=== PATIENT | male | born 1945 | race Caucasian/White ===

== ENCOUNTER 2016-09-24 06:10 | Inpatient (IN) | payer OTHER ==
[2016-09-23 09:32] VITALS: BMI 31.3
[~2016-09-24 06:10] MED LIST: CEFAZOLIN 2 GM in DEXTROSE 5%-WATER - 50 ML IVPB ONE; CELECOXIB 200 MG CAPSULE PO ONE; ROPIVICAINE 0.2%/MORPH PF/KETOROLAC - 51ML DISP.SYRINGE IA ONE; TRANEXAMIC ACID 1000 MG/10 ML VIAL IVPUSH ONE
[2016-09-24] MEDS ORDERED: SODIUM CHLORIDE 0.9% P/F 10 ML VIAL IJ ONE (06:36)
[2016-09-24] MEDS ORDERED: MIDAZOLAM HCL 2 MG/2 ML SINGLE DOSE VIAL ONE (06:36)
[2016-09-24] MEDS ORDERED: ROPIVACAINE HCL 0.5% 30ML VIAL ONE (06:36)
[2016-09-24] MEDS ORDERED: DEXAMETHASONE SOD PHOSPHATE/PF 10 MG/ML SDV ONE (06:36)
[2016-09-24] MEDS ORDERED: ePHEDrine SULFATE 50 MG/1 ML AMPULE ONE (07:08)
[2016-09-24] MEDS ORDERED: PROPOFOL 20 ML ONE ×3 (07:08)
[2016-09-24] MEDS ORDERED: SUCCINYLCHOLINE CHLORIDE 200 MG/10 ML VIAL ONE (07:09)
[2016-09-24] MEDS ORDERED: ceFAZolin SODIUM 1 GM VIAL ONE ×2 (07:11→07:16)
[2016-09-24] MEDS ORDERED: TRANEXAMIC ACID 1000 MG/10 ML VIAL ONE ×2 (07:11→07:16)
[2016-09-24] MEDS ORDERED: BUPIVACAINE HCL/PF 0.5% (5MG/ML) 10 ML VIAL ONE (07:12)
[2016-09-24] MEDS ORDERED: ROPIVICAINE 0.2%/MORPH PF/KETOROLAC - 51ML DISP.SYRINGE IA ONE (07:16)
[2016-09-24] MEDS ORDERED: VANCOMYCIN 1,000 MG VIAL (RESTRICTED TO ID ONLY) ONE (07:16)
[2016-09-24] MEDS ORDERED: GABAPENTIN 300 MG CAPSULE (FP) ONE (07:18)
[2016-09-24] MEDS ORDERED: CELECOXIB 200 MG CAPSULE ONE (07:19)
[2016-09-24] MEDS: GABAPENTIN 300 MG CAPSULE (FP) PO ONE (07:25)
--- NOTE | 2016-09-24 07:39 | HP ---
Admitting History and Physical - Admission Chief Complaint: Left knee OA x years History of Present Illness: 70 year old male presents in regard to his left knee. Longstanding history of left knee osteoarthritis. Patient complains of pain, limited ROM and difficulty ambulating. Patient's symptoms affect his ADLs. Patient has failed conservative treatment including PO medication, injections, activity modification and exercise program. Patient would like to proceed with a left total knee arthroplasty. History Source: Patient - Past Medical History Cardiovascular: Yes: HTN Gastrointestinal: Yes: GERD Rheumatology: Yes: Gout - Past Surgical History Additional Past Surgical History: See written H&P in chart - Smoking History Smoking history: Former smoker Have you smoked in the past 12 months: No If you are a former smoker, when did you quit?: 1976 - Alcohol/Substance Use Hx Alcohol Use: No (QUIT 2014) Home Medications - Allergies Allergies/Adverse Reactions: Allergies Allergy/AdvReac Type Severity Reaction Status Date / Time lactose Allergy Intermediate ABD PAIN Verified 09/22/16 13:03 No Known Drug Allergies Allergy Verified 09/22/16 13:03 - Home Medications Home Medications: Ambulatory Orders Allopurinol 300 mg PO DAILY 09/22/16 Atenolol [Tenormin] 50 mg PO DAILY 09/22/16 Omeprazole 40 mg PO DAILY 09/22/16 Pantoprazole Sodium [Protonix] 40 mg PO DAILY 09/22/16 Colchicine/Probenecid [Probenecid-Colchicine Tabs] 1 tab PO DAILY 09/23/16 Review of Systems - Review of Systems Musculoskeletal: reports: Crepitus (Left Knee), Decreased ROM (Left Knee), Joint Pain (Left Knee), Joint Swelling (Left Knee) Physical Examination Vital Signs: Vital Signs Temperature 98 F 09/24/16 07:06 Pulse Rate 56 L 09/24/16 07:06 Respiratory Rate 18 09/24/16 07:06 Blood Pressure 143/91 09/24/16 07:06 O2 Sat by Pulse Oximetry (%) Constitutional: Yes: Well Nourished, No Distress Eyes: Yes: Conjunctiva Clear HENT: Yes: Atraumatic, Normocephalic Neck: Yes: Supple Cardiovascular: Yes: Regular Rate and Rhythm Respiratory: Yes: Regular Gastrointestinal: Yes: Soft ...Rectal Exam: Yes: Deferred Musculoskeletal: Yes: Joint Stiffness (Left Knee), Joint Swelling (Left Knee) Assessment/Plan 70 year old male with a longstanding history of left knee osteoarthritis. Patient's symptoms affect his ADLs. Patient has failed conservative treatment. Proceed with a left total knee arthroplasty.
--- NOTE | 2016-09-24 11:39 | OP ---
Operative Note - Note: Operative Date: 09/24/16 Pre-Operative Diagnosis: Left knee OA Operation: Left TKA Post-Operative Diagnosis: Same as Pre-op Surgeon: Pollo Triplett Needleworker: Shayy Goodrich Anesthesia: Spinal Estimated Blood Loss (mls): 100 Operative Report Dictated: Yes
[2016-09-24] MEDS ORDERED: MAGNESIUM HYDROX 2400MG/30ML ORAL SUSPENSION 30 ML CUP PO PRN (11:45)
[2016-09-24] MEDS ORDERED: ONDANSETRON 4 MG/2 ML VIAL IVPB PRN (11:45)
[2016-09-24] MEDS ORDERED: MAG HYDROX/AL HYDROX/SIMETH 30 ML UNIT-DOSE CUP PO PRN (11:45)
[2016-09-24] MEDS ORDERED: LACTATED RINGERS SOLUTION 1,000 ML IV SCH (11:45)
[2016-09-24] MEDS: traMADol HCL 50 MG TABLET PO SCH (12:08)
[2016-09-24] MEDS ORDERED: oxyCODONE HCL 5 MG TABLET PO PRN ×2 (12:11)
[2016-09-24] MEDS ORDERED: ROPIVACAINE 0.2% 400ML 400 ML ML NR ONE (12:11)
--- NOTE | 2016-09-24 12:11 | SPEC ---
DATE OF OPERATION: 09/24/2016 PREOPERATIVE DIAGNOSIS: Left knee osteoarthritis. POSTOPERATIVE DIAGNOSIS: Left knee osteoarthritis. PROCEDURE: Left total knee replacement. ATTENDING DOCTOR: Ana Paula Moncada MD TRANSFER AND LINE UP WORKER: JUAN PABLO Cabello ANESTHESIA: Spinal plus sedation. ESTIMATED BLOOD LOSS: 100 mL. COMPLICATIONS: None. SPECIMENS: Resected bone was sent for pathology analysis. DISPOSITION: The patient was transferred to the PACU in stable condition. IMPLANTS USED: [place] Triathlon, size 5 femoral component, size 6 tibial component, 29-mm patellar component, and 9-mm posterior stabilized polyethylene component. INDICATIONS: This is a 70-year-old male who presented to the office complaining of severe left knee pain. He was seen and examined by Dr. Moncada and diagnosed with severe left knee osteoarthritis. The patient was initially treated nonoperatively with conservative treatments such as medications, injections, and physical therapy, but continued to have severe pain and ambulatory dysfunction. He was therefore indicated for a left total knee replacement. The risks, benefits, and alternatives to the surgery were explained to the patient and his family in great detail using a certified retinal angiographer, and he elected to proceed with the surgery. DESCRIPTION OF PROCEDURE: On the day of surgery, the patient was taken to the OR and placed on the OR table. Spinal anesthesia was administered by the anesthesiologist. The patient was then positioned supine on the table and all bony prominences were padded. A nonsterile tourniquet was placed on the proximal thigh. The knee was then prepped and draped in the usual sterile fashion and intravenous antibiotics were given for infection prophylaxis. A surgical time-out was then performed with the team, and the patients identity, procedure, side, availability of implants, and the administration of antibiotics was confirmed. The leg was then elevated and exsanguinated, and the tourniquet was inflated. With the knee flexed, a midline incision was made and carried down through the subcutaneous fat to the underlying retinaculum. A medial parapatellar arthrotomy was performed. This was followed by a subperiosteal dissection of the tissue off the proximal, medial tibia. A portion of fat pad was removed from under the patellar tendon, and a small portion of fat was excised off the distal supracondylar femur. The knee was then flexed further and the anterior horn of the lateral meniscus was released from the midline. Next, the anterior and posterior cruciate ligaments were transected. Osteophytes were removed from both the femur and tibia. Grade 4 changes were noted diffusely throughout the knee. Hohmann retractors were then placed around the distal femur. The starting drill was used to enter the intramedullary canal. The starting point had been chosen by checking the radiographs and anatomy. Proper alignment and intramedullary placement was then confirmed by placing the long narrow eladio into the femur. Next, the distal femoral cutting guide was adjusted to 6 degrees of valgus and pinned to the femur. The bone resection was assessed using an victorino-wing. An approximately 10mm distal cut was made and the cut pieces measured. Once this was complete, the sizing guide was used to determine which size femoral component should be used. Next, the appropriately sized 4-in-1 cutting block was then placed at the correct amount of external rotation and the victorino wing was used to assure that there would be no notching of the anterior cortex of the femur. Once this was done, Hohmann retractors were used to protect the medial and lateral collateral ligaments, and all appropriate bone cuts were made. Attention was then turned to the tibia. Hohmann retractors were used to translate the tibia anteriorly and protect the collateral ligaments. The medial and lateral menisci were removed. The extramedullary tibial alignment guide was then placed and adjusted for rotation, varus/valgus, and slope. The height of the cutting block was adjusted to the level of the desired bone resection and then pinned in place. The proximal tibia was then cut with a saw and the bone was removed and measured. Once this was completed, trial components were placed and the knee was taken through a full range of motion. Soft tissue balance was assessed in both flexion and extension and found to be appropriate. The knee was stable throughout the full range of motion. The knee was then put into extension and the patella everted. The synovium around the patella was circumscribed with electrocautery. A caliper was used to measure the patellar thickness and a saw was then used to resect the patella at the chondro-osseous junction. The cut surface was then sized and drilled for the appropriate patellar button, with care taken to medialize it. A trial patella was then placed and the knee was again taken through a full range of motion. The knee was found to have both good balance and good patellar tracking. All of the components were removed except the tibial base plate. The appropriate instrumentation was used to drill and punch the proximal tibia for the keel of the final component. All bony surfaces were then cleaned with pulsatile lavage and dried. Bone cement was then prepared on the back table, and final components were cemented in place in the usual fashion. Extruded cement was removed. The polyethylene trial was placed, the knee was put into extension, and axial pressure was applied for compression while the cement hardened. The patellar button was similarly cemented into place. Once the cement had hardened, the knee was taken through a full range of motion to assess stability, balance, and patellar tracking. This was found to be optimal and the trial polyethylene was exchanged for the appropriately sized real implant. The wound was then thoroughly irrigated with normal saline. No. 1 Polysorb and 0 VLoc 180 barbed sutures were used to close the arthrotomy. No. 1 Polysorb and 2-0 Polysorb sutures were used in the subcutaneous tissues. The skin was closed using both 3-0 VLoc 90 suture in a running subcuticular fashion and SwiftSet skin adhesive. Once this was completed a sterile Aquacel dressing and compressive Roldan-wrap was applied. The tourniquet was then deflated and the patient was awakened and taken to the PACU in stable condition. ADDENDUM: After final components were placed, a 3-minute dilute Betadine lavage was performed using the YOUNG protocol. This was followed copious irrigation with saline pulsatile lavage. Wound closure was then begun. ANA PAULA MONCADA M.D. [id number]
[2016-09-24] MEDS: ACETAMINOPHEN 325 MG TABLET (FP) PO SCH (12:20)
[2016-09-24] MEDS: oxyCODONE HCL 10 MG SUSTAINED ACTING TABLET PO SCH (21:40)
[2016-09-24] MEDS: ASCORBIC ACID 500 MG TABLET (FP) PO SCH (21:40)
[2016-09-24] MEDS: GABAPENTIN 300 MG CAPSULE (FP) PO SCH (21:40)
[2016-09-24] MEDS: SENNOSIDES/DOCUSATE COMBO (SENNA PLUS) TABLET (UD) PO SCH (21:41)
[2016-09-25] MEDS: traMADol HCL 50 MG TABLET PO SCH ×7 (00:13→23:57)
[2016-09-25] MEDS: ACETAMINOPHEN 325 MG TABLET (FP) PO SCH ×6 (00:14→23:57)
[2016-09-25] MEDS: CEFAZOLIN 2 GM/D5W 50 ML IVPB SCH ×2 (02:17→20:16)
[2016-09-25 08:14] LABS: MCH 28.6 pg (25.7-33.7); MCHC 32.8 g/dl (32.0-35.9); MEAN PLT VOLUME 8.5 fl (7.5-11.1); PLATELET COUNT 197 K/MM3 (134-434); RDW 15.7 % (11.9-15.9); WHITE BLOOD COUNT 8.6 K/mm3 (4.0-10.8)
[2016-09-25 08:16] LABS: ANION GAP 7 (8-16); CALCIUM 8.4 mg/dl (8.4-10.2); CO2 26 mmol/L (22-28); GLUCOSE,RANDOM 99 mg/dl (74-106)
[2016-09-25] MEDS: ASCORBIC ACID 500 MG TABLET (FP) PO SCH ×2 (09:09→21:34)
[2016-09-25] MEDS: ALLOPURINOL 300 MG TABLET (FP) PO SCH (09:09)
[2016-09-25] MEDS: SENNOSIDES/DOCUSATE COMBO (SENNA PLUS) TABLET (UD) PO SCH ×2 (09:09→21:35)
[2016-09-25] MEDS: GABAPENTIN 300 MG CAPSULE (FP) PO SCH ×2 (09:09→21:35)
[2016-09-25] MEDS: MULTIVITAMINS (DAILY MVI) TABLET (FP) PO SCH (09:10)
[2016-09-25] MEDS: oxyCODONE HCL 10 MG SUSTAINED ACTING TABLET PO SCH ×2 (09:10→21:35)
[2016-09-25] MEDS: PANTOPRAZOLE 40 MG TABLET (FP) PO SCH (09:10)
[2016-09-25] MEDS: ASPIRIN 325 MG TABLET PO SCH (09:11)
[2016-09-25] MEDS: ATENOLOL 50 MG TABLET (FP) PO SCH (09:12)
--- NOTE | 2016-09-25 09:23 | PN ---
Progress Note (short form) - Note Progress Note: Pt seen and examined. Comfortable. No complaints. AVSS Selected Entries 09/25/16 06:00 Temperature 97.6 F Pulse Rate 55 L Respiratory 18 Rate Blood Pressure 129/75 O2 Sat by Pulse 97 Oximetry (%) Oxygen Delivery Room Air Method Laboratory Tests 09/25/16 09/25/16 07:30 07:30 WBC 8.6 Hgb 10.8 L Hct 33.0 L Plt Count 197 Sodium 136 Potassium 4.8 Chloride 103 Carbon Dioxide 26 Anion Gap 7 L BUN 26 H Creatinine 2.0 H Random Glucose 99 Calcium 8.4 Gen: NAD LLE: c/d/i, NVID A/P 70yo male POD#1 s/p L TKA 1. PT/OOB - WBAT LLE 2. Hx of chronic renal insufficiency - encourage PO fluid intake. NS @ 125cc/ hr until tomorrow. 3. Plan for d/c home tomorrow
[2016-09-25] MEDS: SODIUM CHLORIDE 1,000 ML IV SCH (10:00)
[2016-09-25] MEDS ORDERED: COLCHICINE PO SCH (10:00)
[2016-09-25] MEDS ORDERED: PANTOPRAZOLE 40 MG TABLET (FP) PO SCH (10:00)
[2016-09-25] MEDS ORDERED: PROBENECID PO SCH (10:00)
[2016-09-25] MEDS ORDERED: PT OWN MED DRAWER 7, Y5N ONE (16:36)
[2016-09-25] MEDS: GABAPENTIN 300 MG CAPSULE (FP) PO ONE (20:17)
[2016-09-26] MEDS: traMADol HCL 50 MG TABLET PO SCH ×2 (05:34→11:45)
[2016-09-26] MEDS: ACETAMINOPHEN 325 MG TABLET (FP) PO SCH ×2 (05:34→11:46)
[2016-09-26 06:54] VITALS: BP 156/95; PULSE 70; TEMP 98.5
[2016-09-26 07:55] LABS: MCH 28.4 pg (25.7-33.7); MCHC 32.8 g/dl (32.0-35.9); MEAN CELL VOLUME 86.6 fl (80-96); MEAN PLT VOLUME 8.4 fl (7.5-11.1); PLATELET COUNT 197 K/MM3 (134-434); RDW 15.7 % (11.9-15.9); WHITE BLOOD COUNT 7.4 K/mm3 (4.0-10.8)
[2016-09-26 07:58] LABS: CALCIUM 8.4 mg/dl (8.4-10.2); COCKROFT - GAULT 57.95; CREATININE 1.5 mg/dl (0.6-1.3)
[2016-09-26] MEDS: ASPIRIN 325 MG TABLET PO SCH (08:46)
[2016-09-26] MEDS ORDERED: PT OWN MED DRAWER 7, Y5N ONE (10:04)
[2016-09-26] MEDS: oxyCODONE HCL 10 MG SUSTAINED ACTING TABLET PO SCH (10:12)
[2016-09-26] MEDS: GABAPENTIN 300 MG CAPSULE (FP) PO SCH (10:13)
[2016-09-26] MEDS: PANTOPRAZOLE 40 MG TABLET (FP) PO SCH (10:14)
[2016-09-26] MEDS: SENNOSIDES/DOCUSATE COMBO (SENNA PLUS) TABLET (UD) PO SCH (10:14)
[2016-09-26] MEDS: MULTIVITAMINS (DAILY MVI) TABLET (FP) PO SCH (10:14)
[2016-09-26] MEDS: SODIUM CHLORIDE 1,000 ML IV SCH (10:14)
[2016-09-26] MEDS: ALLOPURINOL 300 MG TABLET (FP) PO SCH (10:15)
[2016-09-26] MEDS: ATENOLOL 50 MG TABLET (FP) PO SCH (10:15)
[2016-09-26] MEDS: ASCORBIC ACID 500 MG TABLET (FP) PO SCH (10:15)
--- NOTE | 2016-09-26 12:29 | PN ---
Progress Note (short form) - Note Progress Note: Pt seen and examined. Comfortable. No complaints. AVSS Selected Entries 09/26/16 06:00 Temperature 98.5 F Pulse Rate 70 Respiratory 19 Rate Blood Pressure 156/95 O2 Sat by Pulse 95 Oximetry (%) Oxygen Delivery Room Air Method Laboratory Tests 09/26/16 09/26/16 07:25 07:25 WBC 7.4 Hgb 10.7 L Hct 32.6 L Plt Count 197 Sodium 136 Potassium 4.6 Chloride 103 Carbon Dioxide 26 Anion Gap 7 L BUN 18 D Creatinine 1.5 H D Random Glucose 121 H D Calcium 8.4 Gen: NAD LLE: c/d/i, NVID A/P 70yo male POD#2 s/p L TKA 1. PT/OOB - WBAT LLE 2. Hx of chronic renal insufficiency - Creatinine back to baseline @ 1.5 3. D/C home today
--- NOTE | 2016-09-26 12:40 | DS ---
Physical Examination Vital Signs: Vital Signs Temperature 98.5 F 09/26/16 06:00 Pulse Rate 70 09/26/16 06:00 Respiratory Rate 19 09/26/16 09:00 Blood Pressure 156/95 09/26/16 06:00 O2 Sat by Pulse Oximetry (%) 95 09/26/16 09:00 Labs: CBC, BMP 09/26/16 07:25 09/26/16 07:25 Discharge Summary Reason For Visit: LEFT KNEE OSTEOARTHRITIS Current Active Problems Osteoarthritis of left knee (Acute) Procedures: Principal: left knee replacement Hospital Course: Admitted for elective surgery. Procedure performed without complications. Pt received postoperative antibiotic prophylaxis and DVT ppx. Ambulated with physical therapy. Stable for discharge home with outpatient followup. Condition: Stable - Instructions Diet, Activity, Other Instructions: Dr. Triplett - Knee Replacement Instructions Keep the Aquacel dressing on until removed by Dr. Triplett in 10-14 days - it is antibacterial and waterproof and you can shower with it on. Call the office for a follow-up appointment with Dr. Triplett in 10-14 days. Take one Aspirin 325mg daily for 6 weeks to prevent blood clots in your legs. Take one Pantoprazole 40mg daily for 6 weeks to protect against heartburn and ulcers. Take a multivitamin and vitamin C supplement daily Take an over the counter stool softener daily to prevent constipation For pain: *Mild pain (1-3/10): Take 1 Tramadol tablet every 4 hours as needed. Moderate pain (4-6/10): Take 1 Tramadol tablet and 1 Percocet tablet every 4 hours as needed. Severe pain (7-10/10): Take 1 Tramadol tablet and 2 Percocet tablets every 4 hours as needed. Activity: You can put as much weight on the operative leg as you want. Right after you get home, there will be a physical therapist coming to your house to help you walk around and bend/straighten your knee. After your follow-up appointment, you will be sent for more intensive outpatient physical therapy which will include machines and equipment that the home therapist cannot bring to your house. Always use a walker or cane for balance and to prevent falls. Disposition: VNS/HOME HEALTH CARE - Home Medications Comprehensive Discharge Medication List: Ambulatory Orders Allopurinol 300 mg PO DAILY 09/22/16 Atenolol [Tenormin] 50 mg PO DAILY 09/22/16 Omeprazole 40 mg PO DAILY 09/22/16 Colchicine/Probenecid [Col-Benemid] 1 tab PO DAILY 09/23/16 Ascorbic Acid [Vitamin C -] 500 mg PO BID tablet 09/26/16 Aspirin [ASA -] 325 mg PO DAILY@0800 tablet 09/26/16 Multivitamins [Multivit ([facility] Formul[facility])] 1 tab PO DAILY tab 09/26/16 Oxycodone HCl/Acetaminophen [Percocet 5-325 mg Tablet] 1 - 2 tab PO Q4H PRN #60 tablet MDD 10 09/26/16 Pantoprazole Sodium [Protonix] 40 mg PO DAILY #40 tab 09/26/16 Sennosides/Docusate Sodium [Pericolace -] 2 tablet PO BID tablet 09/26/16 Tramadol HCl [Ultram -] 50 mg PO Q4H PRN #90 tablet MDD 6 09/26/16
--- NOTE | 2016-09-28 15:32 | PATH ---
Surgical Pathology Report Patient Name: SURYA ROSE Med. Rec. #: [id number] /Age/Gender: 1945 (Age: 70) / M Account: [id number] Location: [facility] MED-SURG Taken: 09/24/2016 Received: 09/24/2016 Reported: 09/28/2016 Physicians: Pollo Triplett M.D. Specimen(s) Received BONE LEFT KNEE Clinical History Left knee osteoarthritis Final Diagnosis BONE, LEFT KNEE, TOTAL KNEE REPLACEMENT: DEGENERATIVE JOINT DISEASE. Electronically Signed Adrienne Serra M.D. Gross Description Received in formalin labeled "bone left knee," is a 13.0 x 10.0 x 2.0 cm aggregate of multiple resendiz-yellow, irregular portions of bone and soft tissue. The tibial plateau measures 8.8 x 6.0 x 1.8 cm. There are multiple areas of eburnation present, measuring up to 3 cm in greatest dimension. The remaining articular surfaces are resendiz-yellow and focally granular. The underlying trabecular bone is yellow and hard. Metal Caster sections are submitted in one cassette, following decalcification. 09/25/201609/25/2016
== END 2016-09-26 14:00 | disposition home health service (06) | DRG 470 ==
LOC: FM/S 06:10
PROVIDERS: ADMIT Student in an Organized Health Care Education/Training Program; ATTEND Student in an Organized Health Care Education/Training Program
PROC: 0SRD0J9 Replacement of Left Knee Joint with Synthetic Substitute, Cemented, Open Approach (ICD-10-PCS; principal; 2016-09-24 08:59)
DX: M17.12 Unilateral primary osteoarthritis, left knee (principal); K21.9 Gastro-esophageal reflux disease without esophagitis; I12.9 Hypertensive chronic kidney disease with stage 1 through stage 4 chronic kidney disease, or unspecified chronic kidney disease; N18.9 Chronic kidney disease, unspecified; M10.9 Gout, unspecified
CPT/HCPCS: 36415; 73560-TC-LT; 80048; 85027; 88304-TC; 88311-TC; 94010; 94760; 97116-GP; 97162

== ENCOUNTER 2017-09-02 09:36 | Inpatient (IN) | payer OTHER ==
[2017-08-25 10:53] VITALS: BMI 31.7
--- NOTE | 2017-09-02 08:00 | HP ---
Admitting History and Physical - Admission Chief Complaint: right knee osteoarthritis x years History of Present Illness: 71 year old male presents regarding his right knee. Longstanding history of right knee osteoarthritis. Patient complains of pain, limited ROM, difficulty ambulating and difficulty with activities of daily living. Patient has failed conservative treatment measures including PO medication, activity modification, exercise program and injections. As patient has failed conservative treatment measures, he wishes to proceed with surgical intervention - right total knee arthroplasty. History Source: Patient - Past Medical History Cardiovascular: Yes: HTN Gastrointestinal: Yes: GERD Rheumatology: Yes: Gout - Past Surgical History Additional Past Surgical History: See written history & physical. - Smoking History Smoking history: Former smoker Have you smoked in the past 12 months: No If you are a former smoker, when did you quit?: 1976 - Alcohol/Substance Use Hx Alcohol Use: Yes (SOCIALLY) Home Medications - Allergies Allergies/Adverse Reactions: Allergies Allergy/AdvReac Type Severity Reaction Status Date / Time lactose Allergy Intermediate ABD PAIN Verified 08/25/17 10:36 No Known Drug Allergies Allergy Verified 08/25/17 10:36 - Home Medications Home Medications: Ambulatory Orders Allopurinol 300 mg PO DAILY 09/22/16 Atenolol [Tenormin] 50 mg PO DAILY 09/22/16 Omeprazole 40 mg PO DAILY 09/22/16 Colchicine/Probenecid [Col-Benemid] 1 tab PO DAILY 09/23/16 Multivitamins [Multivit ([facility] Formul[facility])] 1 tab PO DAILY tab 09/26/16 Pantoprazole Sodium [Protonix] 40 mg PO DAILY #40 tab 09/26/16 Review of Systems - Review of Systems Musculoskeletal: reports: Decreased ROM (right knee), Joint Pain (right knee), Joint Swelling (right knee) Physical Examination Constitutional: Yes: Well Nourished, No Distress Eyes: Yes: Conjunctiva Clear HENT: Yes: Atraumatic, Normocephalic Neck: Yes: Supple Cardiovascular: Yes: Regular Rate and Rhythm Respiratory: Yes: Regular Gastrointestinal: Yes: Soft ...Rectal Exam: Yes: Deferred Musculoskeletal: Yes: Joint Stiffness (right knee), Joint Swelling (right knee) Assessment/Plan 71 year old male presents regarding his right knee. Longstanding history of right knee osteoarthritis. Patient complains of pain, limited ROM, difficulty ambulating and difficulty with activities of daily living. Patient has failed conservative treatment measures including PO medications, activity modification , injections and exercise program. As patient has failed conservative treatment options, he wishes to proceed with surgical intervention. Pros, cons, risks, benefits and alternatives of a right total knee arthroplasty was discussed with the patient at length. Patient confirms his understanding. Patient consents to proceed with a right total knee arthroplasty.
[~2017-09-02 09:36] MED LIST changes: +GABAPENTIN 300 MG CAPSULE (FP) PO ONE; +PANTOPRAZOLE 40 MG TABLET (FP) PO ONE; +oxyCODONE HCL 10 MG SUSTAINED ACTING TABLET PO ONE
[2017-09-02] MEDS ORDERED: DEXAMETHASONE SOD PHOSPHATE/PF 10 MG/ML SDV ONE (12:53)
[2017-09-02] MEDS ORDERED: BUPIVACAINE LIPOSOME/PF (EXPAREL) 266 MG/20 ML VIAL ONE (12:53)
[2017-09-02] MEDS ORDERED: MIDAZOLAM HCL 2 MG/2 ML SINGLE DOSE VIAL ONE ×2 (12:53→15:53)
[2017-09-02] MEDS ORDERED: ceFAZolin SODIUM 1 GM VIAL ONE ×2 (13:47→13:58)
[2017-09-02] MEDS ORDERED: TRANEXAMIC ACID 1000 MG/10 ML VIAL ONE ×2 (13:52→13:59)
[2017-09-02] MEDS ORDERED: ROPIVICAINE 0.2%/MORPH PF/KETOROLAC - 51ML DISP.SYRINGE IA ONE (14:00)
[2017-09-02] MEDS ORDERED: VANCOMYCIN 1,000 MG VIAL (RESTRICTED TO ID ONLY) ONE (14:54)
[2017-09-02] MEDS ORDERED: ONDANSETRON 4 MG/2 ML VIAL IVPUSH PRN ×2 (17:35→17:49)
[2017-09-02] MEDS ORDERED: ACETAMINOPHEN 1000 MG/100 ML VIAL (NON FORMULARY) IVPB ONE ×2 (17:40→18:00)
[2017-09-02] MEDS ORDERED: MAG HYDROX/AL HYDROX/SIMETH 30 ML UNIT-DOSE CUP PO PRN (17:49)
--- NOTE | 2017-09-02 17:52 | OP ---
Operative Note - Note: Operative Date: 09/02/17 Pre-Operative Diagnosis: Right knee OA Operation: RIGHT TKA Post-Operative Diagnosis: Same as Pre-op Surgeon: Pollo Triplett Investigator Welfare: Shayy Goodrich Anesthesia: Spinal Estimated Blood Loss (mls): 100
[2017-09-02] MEDS ORDERED: ACETAMINOPHEN INJECTION 100 ML IVPB ONE (17:58)
[2017-09-02] MEDS ORDERED: LACTATED RINGERS SOLUTION 1,000 ML IV SCH (18:00)
[2017-09-02] MEDS ORDERED: traMADol HCL 50 MG TABLET PO ONE (18:03)
[2017-09-02] MEDS ORDERED: traMADol HCL 50 MG TABLET ONE (18:03)
--- NOTE | 2017-09-02 19:10 | SPEC ---
DATE OF OPERATION: 09/02/2017 PREOPERATIVE DIAGNOSIS: Right knee osteoarthritis. POSTOPERATIVE DIAGNOSIS: Right knee osteoarthritis. PROCEDURE: Right total knee replacement. ATTENDING: Ana Paula Moncada M.D. HOME ECONOMIST CONSUMER SERVICE: Josi Cabello ANESTHESIA: Spinal plus sedation. ESTIMATED BLOOD LOSS: 100 mL. COMPLICATIONS: None. SPECIMENS: Resected bone was sent for pathological analysis. DISPOSITION: The patient was transferred to the PACU in stable condition. IMPLANTS USED: Martell Triathlon size 6 femoral and tibial components, 29-mm patellar component, 9-mm posterior stabilized polyethylene component. INDICATION: This is a 71-year-old male who has a history of bilateral knee severe osteoarthritis. He underwent a left total knee replacement here last year, and that did very well. He continues to have severe right knee pain despite conservative treatment and was therefore indicated for a right total knee replacement. The risks, benefits, and alternatives to the procedure were explained to the patient in great detail, and he elected to proceed with the surgery. DESCRIPTION OF PROCEDURE: On the day of surgery, the patient was taken to the operating room and placed on the OR table. Spinal anesthesia was administered by the anesthesiologist. The patient was then positioned supine on the table and all bony prominences were padded. A nonsterile tourniquet was placed on the proximal thigh. The knee was then prepped and draped in the usual sterile fashion and intravenous antibiotics were given for infection prophylaxis. A surgical time-out was then performed with the team, and the patients identity, procedure, side, availability of implants, and the administration of antibiotics was confirmed. The leg was then elevated and exsanguinated, and the tourniquet was inflated. With the knee flexed, a midline incision was made and carried down through the subcutaneous fat to the underlying retinaculum. A medial parapatellar arthrotomy was performed. This was followed by a subperiosteal dissection of the tissue off the proximal, medial tibia. A portion of fat pad was removed from under the patellar tendon, and a small portion of fat was excised off the distal supracondylar femur. The knee was then flexed further and the anterior horn of the lateral meniscus was released from the midline. Next, the anterior and posterior cruciate ligaments were transected. Osteophytes were removed from both the femur and tibia. Grade 4 changes were noted diffusely throughout the knee. Hohmann retractors were then placed around the distal femur. The starting drill was used to enter the intramedullary canal. The starting point had been chosen by checking the radiographs and anatomy. Proper alignment and intramedullary placement was then confirmed by placing the long narrow eladio into the femur. Next, the distal femoral cutting guide was adjusted to 6 degrees of valgus and pinned to the femur. The bone resection was assessed using an victorino-wing. An approximately 10mm distal cut was made and the cut pieces measured. Once this was complete, the sizing guide was used to determine which size femoral component should be used. Next, the appropriately sized 4-in-1 cutting block was then placed at the correct amount of external rotation and the victorino wing was used to assure that there would be no notching of the anterior cortex of the femur. Once this was done, Hohmann retractors were used to protect the medial and lateral collateral ligaments, and all appropriate bone cuts were made. Attention was then turned to the tibia. Hohmann retractors were used to translate the tibia anteriorly and protect the collateral ligaments. The medial and lateral menisci were removed. The extramedullary tibial alignment guide was then placed and adjusted for rotation, varus/valgus, and slope. The height of the cutting block was adjusted to the level of the desired bone resection and then pinned in place. The proximal tibia was then cut with a saw and the bone was removed and measured. Once this was completed, trial components were placed and the knee was taken through a full range of motion. Soft tissue balance was assessed in both flexion and extension and found to be appropriate. The knee was stable throughout the full range of motion. The knee was then put into extension and the patella everted. The synovium around the patella was circumscribed with electrocautery. A caliper was used to measure the patellar thickness and a saw was then used to resect the patella at the chondro-osseous junction. The cut surface was then sized and drilled for the appropriate patellar button, with care taken to medialize it. A trial patella was then placed and the knee was again taken through a full range of motion. The knee was found to have both good balance and good patellar tracking. All of the components were removed except the tibial base plate. The appropriate instrumentation was used to drill and punch the proximal tibia for the keel of the final component. All bony surfaces were then cleaned with pulsatile lavage and dried. Bone cement was then prepared on the back table, and final components were cemented in place in the usual fashion. Extruded cement was removed. The polyethylene trial was placed, the knee was put into extension, and axial pressure was applied for compression while the cement hardened. The patellar button was similarly cemented into place. Once the cement had hardened, the knee was taken through a full range of motion to assess stability, balance, and patellar tracking. This was found to be optimal and the trial polyethylene was exchanged for the appropriately sized real implant. The wound was then thoroughly irrigated with normal saline. No. 1 Polysorb and 0 VLoc 180 barbed sutures were used to close the arthrotomy. No. 1 Polysorb and 2-0 Polysorb sutures were used in the subcutaneous tissues. The skin was closed using both 3-0 VLoc 90 suture in a running subcuticular fashion and SwiftSet skin adhesive. Once this was completed a sterile Aquacel dressing and compressive Roldan-wrap was applied. The tourniquet was then deflated and the patient was awakened and taken to the PACU in stable condition. ADDENDUM: After final implants were placed, a 3-minute dilute Betadine lavage was performed according to the GENOA protocol. After this was completed, the wound was again irrigated with normal saline, the pulsatile lavage, and then wound closure was begun. ANA PAULA MONCADA M.D. [id number]
[2017-09-02] MEDS: traMADol HCL 50 MG TABLET PO SCH (20:18)
[2017-09-02] MEDS: oxyCODONE HCL 5 MG TABLET PO PRN (20:19)
[2017-09-02] MEDS: GABAPENTIN 300 MG CAPSULE (FP) PO SCH (21:58)
[2017-09-02] MEDS: ASCORBIC ACID 500 MG TABLET (FP) PO SCH (21:58)
[2017-09-02] MEDS: CEFAZOLIN 2 GM in DEXTROSE 5%-WATER - 50 ML IVPB SCH (21:58)
[2017-09-02] MEDS: ATORVASTATIN CA 40 MG TABLET (FP) PO SCH (21:58)
[2017-09-02] MEDS: SENNOSIDES/DOCUSATE COMBO (SENNA PLUS) TABLET (UD) PO SCH (21:58)
[2017-09-03] MEDS: oxyCODONE HCL 5 MG TABLET PO PRN (00:20)
[2017-09-03] MEDS: traMADol HCL 50 MG TABLET PO SCH ×5 (00:21→23:57)
[2017-09-03] MEDS ORDERED: DEXAMETHASONE SOD PHOSPHATE 10 MG/1 ML VIAL ONE (00:38)
[2017-09-03] MEDS ORDERED: DEXAMETHASONE SOD PHOSPHATE 10 MG/1 ML VIAL IVPB ONE (02:00)
[2017-09-03] MEDS: CEFAZOLIN 2 GM in DEXTROSE 5%-WATER - 50 ML IVPB SCH (05:59)
[2017-09-03] MEDS: ASPIRIN 325 MG TABLET PO SCH (08:00)
[2017-09-03 08:10] LABS: MCH 27.7 pg (25.7-33.7); MCHC 32.3 g/dl (32.0-35.9); MEAN CELL VOLUME 85.6 fl (80-96); MEAN PLT VOLUME 8.3 fl (7.5-11.1); PLATELET COUNT 257 K/MM3 (134-434); RBC 3.96 M/mm3 (4.00-5.60); RDW 16.3 % (11.9-15.9); WHITE BLOOD COUNT 12.4 K/mm3 (4.0-10.8)
[2017-09-03 08:26] LABS: ANION GAP 8 (8-16); BLOOD UREA NITROGEN 36 mg/dl (7-18); CALCIUM 8.4 mg/dl (8.4-10.2); CHLORIDE 106 mmol/L (98-107); CO2 22 mmol/L (22-28); CREATININE 1.9 mg/dl (0.6-1.3); GLUCOSE,RANDOM 185 mg/dl (74-106); POTASSIUM 4.5 mmol/L (3.5-5.1); SODIUM 136 mmol/L (136-145)
[2017-09-03] MEDS: PANTOPRAZOLE 40 MG TABLET (FP) PO SCH (09:40)
[2017-09-03] MEDS ORDERED: COLCHICINE PO SCH (10:00)
[2017-09-03] MEDS: MULTIVITAMINS (DAILY MVI) TABLET (FP) PO SCH (10:00)
[2017-09-03] MEDS ORDERED: PROBENECID PO SCH (10:00)
[2017-09-03] MEDS: ATENOLOL 50 MG TABLET (FP) PO SCH (10:05)
[2017-09-03] MEDS: ASCORBIC ACID 500 MG TABLET (FP) PO SCH ×2 (10:05→21:38)
[2017-09-03] MEDS: SENNOSIDES/DOCUSATE COMBO (SENNA PLUS) TABLET (UD) PO SCH ×2 (10:05→21:38)
[2017-09-03] MEDS: ALLOPURINOL 300 MG TABLET (FP) PO SCH (10:05)
[2017-09-03] MEDS: GABAPENTIN 300 MG CAPSULE (FP) PO SCH ×2 (10:10→21:38)
[2017-09-03] MEDS: COLCHICINE 0.6 MG TABLET (FP) PO SCH (10:10)
[2017-09-03] MEDS: PROBENECID 500 MG TABLET PO SCH (10:15)
--- NOTE | 2017-09-03 10:33 | PN ---
Progress Note (short form) - Note Progress Note: Anesthesia postop 71 yo s/p R TKA POD #1 S: Patient sitting in PT without complaint. Pain well controlled. No n/v O: VSS, alert and actively participating in PT A/P: no anesthesia issues, encouraged PT and incentive spirometer
[2017-09-03] MEDS ORDERED: PT OWN MED DRAWER 7, Y5N ONE (13:37)
[2017-09-03] MEDS: LACTATED RINGERS SOLUTION 1,000 ML IV SCH ×2 (19:27→19:28)
[2017-09-03] MEDS: ATORVASTATIN CA 40 MG TABLET (FP) PO SCH (21:38)
[2017-09-04 06:15] VITALS: BP 142/76; PULSE 61; TEMP 97.8
[2017-09-04] MEDS: traMADol HCL 50 MG TABLET PO SCH (06:34)
[2017-09-04] MEDS: ASPIRIN 325 MG TABLET PO SCH (08:00)
--- NOTE | 2017-09-04 08:33 | PN ---
Progress Note (short form) - Note Progress Note: Pt seen and examined. Doing well. AVSS Selected Entries 09/04/17 04:30 Temperature 97.8 F Pulse Rate 61 Respiratory 16 Rate Blood Pressure 142/76 Laboratory Tests 09/03/17 09/03/17 07:35 07:35 WBC 12.4 H D Hgb 11.0 L Hct 34.0 L Plt Count 257 D Sodium 136 Potassium 4.5 Chloride 106 Carbon Dioxide 22 Anion Gap 8 BUN 36 H D Creatinine 1.9 H D Random Glucose 185 H D Gen: NAD RLE: c/d/i, NVID A/P 71yo male POD#2 s/p R TKA Doing well Hx of CKD stage 3 - preop Cr was 1.7. Ok to discharge home. D/C home after PT - f/u in 10-14 days
[2017-09-04 08:37] LABS: ANION GAP 6 (8-16); BLOOD UREA NITROGEN 37 mg/dl (7-18); CALCIUM 8.5 mg/dl (8.4-10.2); CHLORIDE 107 mmol/L (98-107); CO2 24 mmol/L (22-28); CREATININE 1.8 mg/dl (0.6-1.3); GLUCOSE,RANDOM 125 mg/dl (74-106); POTASSIUM 4.9 mmol/L (3.5-5.1); SODIUM 137 mmol/L (136-145)
[2017-09-04] MEDS: MULTIVITAMINS (DAILY MVI) TABLET (FP) PO SCH (09:36)
[2017-09-04] MEDS: ALLOPURINOL 300 MG TABLET (FP) PO SCH (09:36)
[2017-09-04] MEDS: GABAPENTIN 300 MG CAPSULE (FP) PO SCH (09:36)
[2017-09-04] MEDS: ATENOLOL 50 MG TABLET (FP) PO SCH (09:36)
[2017-09-04] MEDS: COLCHICINE 0.6 MG TABLET (FP) PO SCH (09:36)
[2017-09-04] MEDS: ASCORBIC ACID 500 MG TABLET (FP) PO SCH (09:36)
[2017-09-04] MEDS: PANTOPRAZOLE 40 MG TABLET (FP) PO SCH (09:37)
[2017-09-04] MEDS: SENNOSIDES/DOCUSATE COMBO (SENNA PLUS) TABLET (UD) PO SCH (09:37)
[2017-09-04 09:40] LABS: HEMATOCRIT 30.5 % (35.4-49); HEMOGLOBIN 9.9 GM/dL (11.7-16.9); MCH 28.1 pg (25.7-33.7); MCHC 32.5 g/dl (32.0-35.9); MEAN CELL VOLUME 86.3 fl (80-96); MEAN PLT VOLUME 8.6 fl (7.5-11.1); PLATELET COUNT 209 K/MM3 (134-434); RBC 3.54 M/mm3 (4.00-5.60); RDW 17.3 % (11.9-15.9); WHITE BLOOD COUNT 8.8 K/mm3 (4.0-10.0)
[2017-09-04] MEDS ORDERED: PT OWN MED DRAWER 7, Y5N ONE (09:44)
[2017-09-04] MEDS: PROBENECID 500 MG TABLET PO SCH (09:46)
--- NOTE | 2017-09-06 16:16 | PATH ---
Surgical Pathology Report Patient Name: SURYA ROSE Med. Rec. #: [id number] /Age/Gender: 1945 (Age: 71) / M Account: [id number] Location: [facility] MED-SURG Taken: 09/02/2017 Received: 09/02/2017 Reported: 09/06/2017 Physicians: Pollo Triplett M.D. Specimen(s) Received BONE RIGHT KNEE Clinical History Osteoarthritis right knee Final Diagnosis BONE, KNEE, RIGHT, TOTAL KNEE REPLACEMENT: BONE WITH DEGENERATIVE JOINT DISEASE. Electronically Signed Lyndsey Jaimes M.D. Gross Description Received in formalin labeled "bone right knee," is a 12.5 x 10.5 x 2.0 cm aggregate of multiple portions of bone and soft tissue. The tibial plateau measures 8.2 x 5.3 x 1.2 cm. One of the bones displays a 2.3 cm in greatest dimension area of eburnation. The remaining articular surfaces are resendiz-yellow and diffusely granular. The underlying trabecular bone is yellow and hard. Director Of Vocational Training sections are submitted in one cassette, following decalcification. /09/03/2017 saudi09/03/2017
== END 2017-09-04 12:05 | disposition home health service (06) | DRG 470 ==
LOC: FM/S 09:36
PROVIDERS: ADMIT Student in an Organized Health Care Education/Training Program; ATTEND Student in an Organized Health Care Education/Training Program
PROC: 0SRC069 Replacement of Right Knee Joint with Oxidized Zirconium on Polyethylene Synthetic Substitute, Cemented, Open Approach (ICD-10-PCS; principal; 2017-09-02 14:15)
DX: M17.11 Unilateral primary osteoarthritis, right knee (principal); I10 Essential (primary) hypertension; K21.9 Gastro-esophageal reflux disease without esophagitis; M10.9 Gout, unspecified; Z87.891 Personal history of nicotine dependence
CPT/HCPCS: 36415; 73560-TC-RT-FY; 80048; 85027; 88304-TC; 88311-TC; 94760; 97116-GP; 97162-GP; J0131; J1100